=== PATIENT | male | born 1970 ===

== ENCOUNTER 2024-04-15 09:47 | Day surgery (SDC) | payer BC, OTHER ==
[~2024-04-15] VITALS: Ht 170.2 cm; Wt 106.8 kg
[~2024-04-15 09:47] MED LIST: Lactated Ringer's 1,000 ML IV ONE; propofoL 50 ML IV ONE
[2024-04-15] MEDS ORDERED: Lactated Ringer's 1,000 ML IV ONE (10:33)
== END 2024-04-15 12:02 | disposition home or self-care (01) ==
LOC: ORSCSDS 09:47
PROVIDERS: Internal Medicine Gastroenterology
PROC: 0DJ08ZZ Inspection of Upper Intestinal Tract, Via Natural or Artificial Opening Endoscopic (ICD-10-PCS; principal; 2024-04-15 11:00)
PROC: 0DBN8ZX Excision of Sigmoid Colon, Via Natural or Artificial Opening Endoscopic, Diagnostic (ICD-10-PCS; principal; 2024-04-15 11:00)
DX: R19.7 Diarrhea, unspecified (principal); D12.5 Benign neoplasm of sigmoid colon; R15.9 Full incontinence of feces; R14.0 Abdominal distension (gaseous); N40.0 Benign prostatic hyperplasia without lower urinary tract symptoms; Z79.899 Other long term (current) drug therapy
CPT/HCPCS: 88305; J2704; J7120